=== PATIENT | male | born 1995 | race African-American/Black ===

== ENCOUNTER 2020-03-19 13:37 | Emergency (ER) | payer MEDICAID, OTHER ==
--- NOTE | 2020-03-19 13:55 | ER Document Report ---
ED Medical Screen (RME) - General Chief Complaint: Abscess Stated Complaint: ABSCESS/BOTH ARM PITS Time Seen by Provider: 03/19/20 13:49 Mode of Arrival: Ambulatory Information source: Patient Notes: 24-year-old male presented to ED for abscesses to both axilla area. He states his arm for about a week and a half. He states he went to an urgent care in [place] and they started on Bactrim did not I&D the abscesses. He states he went there on 03/16/2020. He states they do not do an I&D and did not start him on Keflex. Patient is alert oriented respirations regular nonlabored speaking i n full sentences. I have talked with another provider CITLALLI Duran and she will complete his treatment. I have greeted and performed a rapid initial assessment of this patient. A comprehensive ED assessment and evaluation of the patient, analysis of test results and completion of medical decision making process will be conducted by an additional ED providers. - Related Data Allergies/Adverse Reactions: No Known Allergies Allergy (Unverified 03/19/20 13:50) Home Medications: bactrim ds BID Past Medical History - Social History Chew tobacco use (# tins/day): No Frequency of alcohol use: None Drug Abuse: None Physical Exam - Vital signs Vitals: Temp Pulse Resp BP Pulse Ox 98.1 F 96 16 112/75 98 03/19/20 13:44 03/19/20 13:44 03/19/20 13:44 03/19/20 13:44 03/19/20 13:44 Course - Vital Signs Vital signs: Temp Pulse Resp BP Pulse Ox 98.1 F 96 16 112/75 98 03/19/20 13:49 03/19/20 13:44 03/19/20 13:44 03/19/20 13:44 03/19/20 13:44
[2020-03-19] MEDS ORDERED: LIDOCAINE 1%/EPINEPHRINE INJ 20 ML VIAL INJ ONE (14:08)
--- NOTE | 2020-03-19 15:12 | ER Document Report ---
HPI - HPI Time Seen by Provider: 03/19/20 13:49 Pain Level: 1 Context: Patient is a 24-year-old male who presents emergency department with a chief complaint of abscesses to bilateral axillary area. Patient states that he was started on Bactrim and continues to have pain in the area. He did not have the abscesses drained. States that he had one that did drain on its own. Denies any history of abscesses. Denies any history of IV drug use. Denies any fever, body aches, or chills. - ROS Systems Reviewed and Negative: Yes All other systems reviewed and negative - CONSTITUTIONAL Constitutional: DENIES: Fever, Chills - RESPIRATORY Respiratory: DENIES: Trouble Breathing, Coughing - GASTROINTESTINAL Gastrointestinal: DENIES: Abdominal Pain, Nausea, Patient vomiting - MUSCULOSKELETAL Musculoskeletal: DENIES: Extremity pain - DERM Skin Color: Normal Skin Problems: Pustule - Bilateral axillary area Past Medical History - General Information source: Patient - Social History Smoking Status: Never Smoker Chew tobacco use (# tins/day): No Frequency of alcohol use: None Drug Abuse: None Family History: Reviewed & Not Pertinent Patient has homicidal ideation: No Vertical Provider Document - CONSTITUTIONAL Agree With Documented VS: Yes Exam Limitations: No Limitations General Appearance: No Apparent Distress - HEENT HEENT: Atraumatic, Normocephalic, PERRLA - NECK Neck: Normal Inspection - RESPIRATORY Respiratory: No Respiratory Distress - CARDIOVASCULAR Cardiovascular: Regular Rate, Regular Rhythm Pulses: Normal: Radial - MUSCULOSKELETAL/EXTREMETIES Musculoskeletal/Extremeties: FROM, Tender - Follow-up axillary area and abscesse s - NEURO Level of Consciousness: Awake, Alert, Appropriate - DERM Integumentary: Abscess - See procedure note Course - Vital Signs Vital signs: Temp Pulse Resp BP Pulse Ox 98.1 F 96 16 112/75 98 03/19/20 13:49 03/19/20 13:44 03/19/20 13:44 03/19/20 13:44 03/19/20 13:44 Procedures - Incision and Drainage Bilateral axilla Type: Simple, Multiple Anesthetic type: 1% Lidocaine w/epi mL's of anesthetic: 10 Blade size: 11 I&D procedure: Betadine prep applied, Sterile dressing applied Incision Method: Incision made by scalpel Amount/type of drainage: 20 mL/blood and purulent drainage Adult Front & Back picture: 1 - Abscess 2 - Abscess Discharge - Discharge Clinical Impression: Abscess Condition: Stable Disposition: HOME, SELF-CARE Additional Instructions: You were seen for an abscess that required drainage. Please clean this area with soap and water twice daily and apply a topical antibiotic. Dress the area after each cleaning. Please return if you develop fever, vomiting, the pain at the site worsens, you notice spreading redness from the area, or you have any other symptoms that are concerning to you. Continue your Bactrim. Take Keflex as prescribed. Prescriptions: Cephalexin Monohydrate [Keflex 500 mg Capsule] 500 mg PO Q6H 7 Days #28 capsule
[2020-03-19 15:26] VITALS: BP 113/75
== END 2020-03-19 15:23 | disposition home or self-care (01) ==
LOC: ER 13:37
DX: L02.411 Cutaneous abscess of right axilla (principal); L03.90 Cellulitis, unspecified
CPT/HCPCS: 99283; 87070; 87205; 87075; 87077; 87186; 10061; J3490